=== PATIENT | female | born 1990 ===

== ENCOUNTER 2019-05-08 02:43 | Emergency (ER) | payer BC ==
[2019-05-08] MEDS ORDERED: Sodium Chloride 0.9% 1,000 ML IV ONE (02:52)
[2019-05-08] MEDS ORDERED: Ondansetron 4 MG/2 ML SDV IVPUSH ONE (02:52)
[2019-05-08] MEDS ORDERED: HYDROmorphone 1 MG/ML Syringe IVPUSH ONE ×2 (02:52→03:35)
[2019-05-08] MEDS ORDERED: Sodium Chloride 0.9% 2.5 ML Syringe FLUSH PRN (02:53)
[2019-05-08] MEDS ORDERED: Sodium Chloride 0.9% 10 ML Syringe FLUSH PRN (02:53)
--- NOTE | 2019-05-08 02:55 | EDM.PDOC ---
ED HPI GENERAL MEDICAL PROBLEM - General Chief Complaint: Lower Extremity Injury/Pain Stated Complaint: POSSIBLE BROKEN RIGHT LEG Time Seen by Provider: 05/08/19 02:47 - History of Present Illness INITIAL COMMENTS - FREE TEXT/NARRATIVE: HISTORY AND PHYSICAL: History of present illness: Patient is a 28-year-old female who presents with complaints of right lower leg pain after she fell off approximately 3 steps. The patient says she was in her usual state of good health with no systemic issues when she was walking up some steps and as she was getting to the top she fell off the side of the steps and landed onto her right leg. She did not hit her head pass out or black out and has no head neck or back pain and complains of pain and swelling only to the lower leg laterally. She says her ankle and foot are not painful and there is no numbness or tingling and her knee itself also does not hurt. She says that the right thigh and hip also do not hurt and all the other extremities are without injuries or pain. She has no abdominal pain no nausea or vomiting and no rib pain chest pain or shortness of breath. Patient does admit she had some alcohol this evening and she did not take any medications for pain prior to coming here. The patient is not taking any anticoagulation therapy The patient admits that she has a history of anxiety and bipolar and is currently not any medications Review of systems: As per history of present illness and below otherwise all systems reviewed and negative. Past medical history: As per history of present illness and as reviewed below otherwise noncontributory. Surgical history: As per history of present illness and as reviewed below otherwise noncontributory. Social history: No reported history of drug or alcohol abuse. Family history: As per history of present illness and as reviewed below otherwise noncontributory. Physical exam: General: Well-developed well-nourished female who is nontoxic and cooperative in the ED. Vital signs are noted by me HEENT: Atraumatic, normocephalic, pupils reactive, negative for conjunctival pallor or scleral icterus, mucous membranes moist, throat clear, neck supple, nontender, trachea midline. There is no evidence of any scalp defects or deformities and there is no midline step-offs tenderness defects of the cervical spine area there is no evidence of any facial injuries or soft tissue swelling and teeth and bite are intact. Lungs: Clear to auscultation, breath sounds equal bilaterally, chest nontender. Heart: S1S2, regular Rhythm and sightly tachycardic rate of my evaluation but no overt murmurs Abdomen: Soft nondistended nontender. Negative for masses or hepatosplenomegaly. NABS. There is no evidence of any abdominal wall soft tissue injury Pelvis: Stable nontender. There is no lateral hip tenderness bilaterally Genitourinary: Deferred. Rectal: Deferred. Extremities: Atraumatic and full range of motion of all extremities with the exception of the right lower leg, negative for cords or calf pain. Neurovascular unremarkable. At the right lower extremity laterally along the proximal fibular area there is soft tissue swelling and tenderness but the tibia appears to be intact and nontender. The patella is also intact and nontender and there is no knee swelling ecchymosis or joint effusion. The proximal femur and hip on the right side is nontender and there is no soft tissue swelling in the distal tib-fib ankle foot and toes are intact and nontender and there are no soft tissue swelling is appreciated Neuro: Awake, alert, oriented. Cranial nerves II through XII unremarkable. Cerebellum unremarkable. Motor and sensory unremarkable throughout. Exam nonfocal. Back: There are no midline step-offs tenderness defects of the thoracic or lumbar spine and no posterior rib tenderness Diagnostics: 1 view right femur, right tib-fib x-ray CBC CMP hCG INR alcohol level CT scan of the head and C-spine Therapeutics: IV, IV fluids, Zofran, Dilaudid and Toradol Long-leg post mold 0418: Case was discussed with Dr. Lujan and he is aware of my concerns with relation to how comminuted this fracture is and that there is a lipoma hemarthrosis. He accepts the patient for transfer and is aware that I am doing CT scan of the head and C-spine as well as we'll place her in a long-leg post mold. I will discuss this conversation with the patient when she returns from CT The patient has returned from CT and she says that she understands that going by ambulance would be more comfortable and safer but she cannot afford the ambulance and would like to go by private vehicle. We will give her a dose of pain medications prior to discharge as well as placing the long-leg splint. We will give her ice packs for the road and she is aware that she should not eat or drink anything in route as they may want to do surgery when she arrives. I have notified [facility] one call she will not be going by ambulance but by private vehicle. We will forward all imaging to the receiving hospital. I will check CT scan results prior to the patient's discharge Impression: Severely comminuted intra-articular proximal tibial fracture with hemarthrosis, status post fall; recent alcohol use/intoxication Definitive disposition and diagnosis as appropriate pending reevaluation and review of above. right leg Pain Score (Numeric/FACES): 10 - Related Data Allergies Allergy/AdvReac Type Severity Reaction Status Date / Time No Known Allergies Allergy Verified 05/08/19 02:51 Home Meds: Home Meds . [No Known Home Meds] 05/08/19 [History] Review of Systems - Review of Systems Review Of Systems: ROS reveals no pertinent complaints other than HPI. ED EXAM, GENERAL - Physical Exam Exam: See Below (See dictation) Course - Vital Signs Last Recorded V/S: Last Vital Signs Temp 36.2 C 05/08/19 03:33 Pulse 97 05/08/19 03:33 Resp 18 05/08/19 03:33 BP 120/70 05/08/19 03:33 Pulse Ox 97 05/08/19 03:33 - Orders/Labs/Meds Orders: Active Orders 24 hr Category Date Time Status Cervical Spine wo Cont [CT] Stat Exams 05/08/19 04:11 Taken Head wo Cont [CT] Stat Exams 05/08/19 04:11 Taken Sodium Chloride 0.9% [Saline Flush] Med 05/08/19 02:53 Active 10 ml FLUSH ASDIRECTED PRN Sodium Chloride 0.9% [Saline Flush] Med 05/08/19 02:53 Active 2.5 ml FLUSH ASDIRECTED PRN DME for Discharge [COMM] Stat Oth 05/08/19 04:22 Ordered Saline Lock Insert [OM.PC] Stat Oth 05/08/19 02:52 Ordered Medication Orders Sodium Chloride (Saline Flush) 10 ml FLUSH ASDIRECTED PRN PRN Reason: Keep Vein Open Last Admin: 05/08/19 03:47 Dose: 10 ml Sodium Chloride (Saline Flush) 2.5 ml FLUSH ASDIRECTED PRN PRN Reason: Keep Vein Open Last Admin: 05/08/19 03:47 Dose: 2.5 ml Labs: Laboratory Tests 05/08/19 05/08/19 05/08/19 Range/Units 02:59 02:59 02:59 WBC 10.37 (4.0-11.0) K/uL RBC 4.39 (4.30-5.90) M/uL Hgb 13.7 (12.0-16.0) g/dL Hct 40.4 (36.0-46.0) % MCV 92.0 (80.0-98.0) fL MCH 31.2 (27.0-32.0) pg MCHC 33.9 (31.0-37.0) g/dL RDW Std Deviation 41.2 (28.0-62.0) fl RDW Coeff of [place] 13 (11.0-15.0) % Plt Count 398 (150-400) K/uL MPV 9.90 (7.40-12.00) fL Neut % (Auto) 49.3 (48.0-80.0) % Lymph % (Auto) 36.3 (16.0-40.0) % Story % (Auto) 8.2 (0.0-15.0) % Eos % (Auto) 5.1 (0.0-7.0) % Baso % (Auto) 1.1 (0.0-1.5) % Neut # (Auto) 5.1 (1.4-5.7) K/uL Lymph # (Auto) 3.8 H (0.6-2.4) K/uL Story # (Auto) 0.9 H (0.0-0.8) K/uL Eos # (Auto) 0.5 (0.0-0.7) K/uL Baso # (Auto) 0.1 (0.0-0.1) K/uL INR 0.92 Sodium 144 (136-145) mmol/L Potassium 3.6 (3.5-5.1) mmol/L Chloride 106 (98-107) mmol/L Carbon Dioxide 23.0 (21.0-32.0) mmol/L BUN 9 (7.0-18.0) mg/dL Creatinine 0.9 (0.6-1.0) mg/dL Est Cr Clr Drug Dosing 87.12 mL/min Estimated GFR (MDRD) > 60.0 ml/min Glucose 123 H (74-106) mg/dL Calcium 9.0 (8.5-10.1) mg/dL Total Bilirubin 0.2 (0.2-1.0) mg/dL AST 23 (15-37) IU/L ALT 24 (14-63) IU/L Alkaline Phosphatase 78 (46-116) U/L Total Protein 7.6 (6.4-8.2) g/dL Albumin 4.2 (3.4-5.0) g/dL Globulin 3.4 (2.6-4.0) g/dL Albumin/Globulin Ratio 1.2 (0.9-1.6) HCG, Qual (NEG) Ethyl Alcohol 243 mg/dL 05/08/19 Range/Units 02:59 WBC (4.0-11.0) K/uL RBC (4.30-5.90) M/uL Hgb (12.0-16.0) g/dL Hct (36.0-46.0) % MCV (80.0-98.0) fL MCH (27.0-32.0) pg MCHC (31.0-37.0) g/dL RDW Std Deviation (28.0-62.0) fl RDW Coeff of [place] (11.0-15.0) % Plt Count (150-400) K/uL MPV (7.40-12.00) fL Neut % (Auto) (48.0-80.0) % Lymph % (Auto) (16.0-40.0) % Story % (Auto) (0.0-15.0) % Eos % (Auto) (0.0-7.0) % Baso % (Auto) (0.0-1.5) % Neut # (Auto) (1.4-5.7) K/uL Lymph # (Auto) (0.6-2.4) K/uL Story # (Auto) (0.0-0.8) K/uL Eos # (Auto) (0.0-0.7) K/uL Baso # (Auto) (0.0-0.1) K/uL INR Sodium (136-145) mmol/L Potassium (3.5-5.1) mmol/L Chloride (98-107) mmol/L Carbon Dioxide (21.0-32.0) mmol/L BUN (7.0-18.0) mg/dL Creatinine (0.6-1.0) mg/dL Est Cr Clr Drug Dosing mL/min Estimated GFR (MDRD) ml/min Glucose (74-106) mg/dL Calcium (8.5-10.1) mg/dL Total Bilirubin (0.2-1.0) mg/dL AST (15-37) IU/L ALT (14-63) IU/L Alkaline Phosphatase (46-116) U/L Total Protein (6.4-8.2) g/dL Albumin (3.4-5.0) g/dL Globulin (2.6-4.0) g/dL Albumin/Globulin Ratio (0.9-1.6) HCG, Qual NEGATIVE (NEG) Ethyl Alcohol mg/dL Meds: Medications Generic Name Dose Route Start Last Admin Trade Name Freq PRN Reason Stop Dose Admin Sodium Chloride 10 ml 05/08/19 02:53 05/08/19 03:47 Saline Flush FLUSH 10 ml ASDIRECTED PRN Administration Keep Vein Open Sodium Chloride 2.5 ml 05/08/19 02:53 05/08/19 03:47 Saline Flush FLUSH 2.5 ml ASDIRECTED PRN Administration Keep Vein Open Discontinued Medications Generic Name Dose Route Start Last Admin Trade Name Frearturo PRN Reason Stop Dose Admin Hydromorphone HCl 1 mg 05/08/19 02:52 05/08/19 02:57 Dilaudid IVPUSH 05/08/19 02:53 1 mg ONETIME ONE Administration Hydromorphone HCl 1 mg 05/08/19 03:35 05/08/19 03:42 Dilaudid IVPUSH 05/08/19 03:36 1 mg ONETIME ONE Administration Sodium Chloride 1,000 mls @ 999 mls/hr 05/08/19 02:52 05/08/19 02:57 Normal Saline IV 05/08/19 03:52 999 mls/hr STAT ONE Administration Ondansetron HCl 4 mg 05/08/19 02:52 05/08/19 02:57 Zofran IVPUSH 05/08/19 02:53 4 mg ONETIME ONE Administration Departure - Departure Time of Disposition: 04:50 Disposition: DC/Tfer to Acute Hospital 02 Condition: Good Clinical Impression: Fracture of proximal end of right tibia Qualifiers: Encounter type: initial encounter Fracture type: closed Fracture morphology: other fracture Qualified Code(s): S82.191A - Other fracture of upper end of right tibia, initial encounter for closed fracture - Discharge Information Referrals: PCP,None [Primary Care Provider] - Forms: ED Department Discharge - My Orders Last 24 Hours: My Active Orders 05/08/19 02:52 Saline Lock Insert [OM.PC] Stat 05/08/19 02:53 Sodium Chloride 0.9% [Saline Flush] 10 ml FLUSH ASDIRECTED PRN Sodium Chloride 0.9% [Saline Flush] 2.5 ml FLUSH ASDIRECTED PRN 05/08/19 04:11 Cervical Spine wo Cont [CT] Stat Head wo Cont [CT] Stat 05/08/19 04:22 DME for Discharge [COMM] Stat - Assessment/Plan Last 24 Hours: My Active Orders 05/08/19 02:52 Saline Lock Insert [OM.PC] Stat 05/08/19 02:53 Sodium Chloride 0.9% [Saline Flush] 10 ml FLUSH ASDIRECTED PRN Sodium Chloride 0.9% [Saline Flush] 2.5 ml FLUSH ASDIRECTED PRN 05/08/19 04:11 Cervical Spine wo Cont [CT] Stat Head wo Cont [CT] Stat 05/08/19 04:22 DME for Discharge [COMM] Stat
--- NOTE | 2019-05-08 03:38 | CR ---
INDICATION: Tibia pain following fall TECHNIQUE: Tibia-fibula radiograph 4 views right COMPARISON: None FINDINGS: Bone: There is a severely comminuted intra-articular fracture of the proximal tibia present. Evaluation of the mid tibia is limited by overlying bandage or compress material. Joint: The visualized knee and ankle joints are unremarkable. A small lipohemarthrosis present. Soft tissue: Unremarkable. No radiopaque foreign bodies are seen. IMPRESSIONS: 1. There is a severely comminuted intra-articular fracture of the proximal tibia present. 2. A small lipohemarthrosis present. Dictated by Carlton Oliveira MD @ 05/08/2019 3:38:05 AM Dictated by: Carlton Oliveira MD @ 05/08/2019 03:38:11 (Electronically Signed)
--- NOTE | 2019-05-08 03:49 | CR ---
INDICATION: Femur pain following fall. TECHNIQUE: Femur radiograph 1 views on 2 films right COMPARISON: None FINDINGS: Bones: Alignment is normal. No acute fractures or aggressive bone lesions identified. The distal femur is excluded on the frontal view. Joint spaces: Unremarkable. Soft tissues: Unremarkable. No radiopaque foreign bodies are seen. IMPRESSION: 1. No acute osseous injuries are noted. 2. Complete radiographic assessment will require at least an additional orthogonal view. Dictated by: Carlton Oliveira MD @ 05/08/2019 03:48:25 (Electronically Signed)
[2019-05-08 03:51] LABS: BLOOD UREA NITROGEN,BUN 9 mg/dL (7.0-18.0); CHLORIDE,CL 106 mmol/L (98-107); GLUCOSE RANDOM 123 mg/dL (74-106); POTASSIUM,K 3.6 mmol/L (3.5-5.1); SODIUM,NA 144 mmol/L (136-145)
[2019-05-08] MEDS ORDERED: HYDROmorphone 1 MG/ML Syringe IM ONE (04:33)
[2019-05-08] MEDS ORDERED: Ketorolac 30 MG/ML SDV IVPUSH ONE (04:33)
--- NOTE | 2019-05-08 04:33 | CT ---
INDICATION: Headache following fall TECHNIQUE: CT Head without i.v. contrast. COMPARISON: None FINDINGS: CSF space: The ventricles are normal for age. Brain: No evidence of mass, acute infarction or hemorrhage is seen. No mass-effect or midline shift is seen. The brain parenchyma is otherwise normal in appearance with preservation of the rodriguez-white matter junction. Calvarium: The visualized paranasal sinuses are well aerated. The mastoid air cells are clear. The visualized orbits are grossly unremarkable. The calvarium is unremarkable in appearance with no fractures identified. IMPRESSION: 1. No evidence of acute infarction, intracranial hemorrhage, or mass-effect seen. Please note that all CT scans at this facility use dose modulation, iterative reconstruction, and/or weight-based dosing when appropriate to reduce radiation dose to as low as reasonably achievable. Dictated by: Carlton Oliveira MD @ 05/08/2019 04:32:26 (Electronically Signed)
--- NOTE | 2019-05-08 04:38 | CT ---
INDICATION: Cervical spine pain following fall TECHNIQUE: CT cervical spine without i.v. contrast. Coronal and sagittal reformats were obtained. COMPARISON: None FINDINGS: Alignment: Unremarkable. Bone: No acute fractures or aggressive bone lesions are identified. Disc: The disc spaces are unremarkable in appearance. The facet joints are unremarkable. Soft tissue: The prevertebral soft tissues are unremarkable in appearance. The visualized lung apices and mediastinum are unremarkable. IMPRESSION: 1. No acute osseous injuries are identified. Please note that all CT scans at this facility use dose modulation, iterative reconstruction, and/or weight-based dosing when appropriate to reduce radiation dose to as low as reasonably achievable. Dictated by: Carlton Oliveira MD @ 05/08/2019 04:36:59 (Electronically Signed)
== END 2019-05-08 05:10 ==
LOC: MW.ED 02:43
DX: S82.191A Other fracture of upper end of right tibia, initial encounter for closed fracture (principal); F10.129 Alcohol abuse with intoxication, unspecified; Y90.8 Blood alcohol level of 240 mg/100 ml or more; W10.9XXA Fall (on) (from) unspecified stairs and steps, initial encounter
CPT/HCPCS: 36415; 70450; 72125; 73551; 73590; 80053; 84703; 85025; 85610; 96361; 96372; 96374; 96375; 96376; 99284; G0480; J1170; J1885; J2405; J7040

== ENCOUNTER 2019-05-17 18:21 | Emergency (ER) | payer SELFPAY ==
--- NOTE | 2019-05-17 18:54 | EDM.PDOC ---
ED HPI GENERAL MEDICAL PROBLEM - General Chief Complaint: Lower Extremity Injury/Pain Stated Complaint: HIP PAIN Time Seen by Provider: 05/17/19 18:30 Source of Information: Reports: Patient History Limitations: Reports: No Limitations - History of Present Illness INITIAL COMMENTS - FREE TEXT/NARRATIVE: HISTORY AND PHYSICAL: History of present illness: Patient is a 28-year-old female who presents to the emergency room with complaints of right hip pain. Patient was seen in our emergency room on 05/08/19 for injuries related to a fall. She was diagnosed with a severely comminuted intra-articular proximal tibial fracture and did ultimately have surgery at [facility]. Since that time she has had some right pain. Her orthopedic surgeon in [place], had ordered a hip x-ray which was negative. She did call his office today for advice on continued hip pain. He recommended she come to the emergency room for evaluation and CT study as she may have an occult fracture. Patient is ambulatory using crutches due to her lower extremity surgery. Review of systems: As per history of present illness and below otherwise all systems reviewed and negative. Past medical history: As per history of present illness and as reviewed below otherwise noncontributory. Surgical history: As per history of present illness and as reviewed below otherwise noncontributory. Social history: See social history for further information Family history: As per history of present illness and as reviewed below otherwise noncontributory. Physical exam: General: Well-developed and well-nourished 28-year-old female. Alert and oriented. Nontoxic appearing and in no acute distress. HEENT: Atraumatic, normocephalic, pupils equal and reactive bilaterally, negative for conjunctival pallor or scleral icterus, mucous membranes moist, nontender, trachea midline. No drooling or trismus noted. No meningeal signs. No hot potato voice noted. Lungs: Clear to auscultation, breath sounds equal bilaterally, chest nontender. Heart: S1S2, regular rate and rhythm without overt murmur Abdomen: Soft, nondistended, nontender. Negative for masses or hepatosplenomegaly. Negative for costovertebral tenderness. Pelvis: Stable nontender. Skin: Intact, warm, dry. No lesions or rashes noted. Extremities: Unable to weight bear due to recent surgery of right lower extremity; using crutches. Otherwise moves all other extremities per self without difficulty or deficits, strong pedal pulses bilaterally. No zbigniew tenderness with palpation of right hip. Neurovascular unremarkable. Neuro: Awake, alert, oriented. Cranial nerves II through XII unremarkable. Cerebellum unremarkable. Motor and sensory unremarkable throughout. Exam nonfocal. Notes: CT shows no acute osseous injuries or abnormalities are noted. This information was shared with the patient. She does have an appointment on 05/20/19 with the surgeon. I encouraged her to bring the CT results with her to that follow-up. She states she is out of her oxycodone today. I will give her hydrocodone to get her through to her appointment. Supportive care measures were reviewed and discussed. Voices understanding and is agreeable to plan of care. Denies any further questions or concerns at this time. Diagnostics: Hip/Pelvis CT Therapeutics: None Prescription: Cloverdale (#30) Impression: Right hip pain Plan: 1. Rest, ice, elevate the affected extremity. Please wear the lower extremity immobilizer/crutches as directed. 2. Tylenol and/or Ibuprofen as needed for pain management. 3. Follow up with the Orthopedic provider on Thursday as you have scheduled. Return to the ED as needed and as discussed. Definitive disposition and diagnosis as appropriate pending reevaluation and review of above. Right Leg Pain Score (Numeric/FACES): 7 - Related Data Allergies Allergy/AdvReac Type Severity Reaction Status Date / Time No Known Allergies Allergy Verified 05/17/19 18:32 Home Meds: Home Meds Acetaminophen/HYDROcodone [Cloverdale 325-5 MG] 1 dose PO Q4H #30 tablet 05/17/19 [Rx ] Enoxaparin [Lovenox] 05/17/19 [History] Past Medical History Cardiovascular History: Reports: Hypertension, Other (See Below) Other Cardiovascular History: "i was on blood pressure medication before because of my anxiety" Gastrointestinal History: Reports: None [employer] History: Reports: Psychiatric History: Reports: Anxiety, Bipolar - Infectious Disease History Infectious Disease History: Reports: Chicken Pox - Past Surgical History HEENT Surgical History: Reports: Adenoidectomy, Tonsillectomy Cardiovascular Surgical History: Reports: None GI Surgical History: Reports: Appendectomy Musculoskeletal Surgical History: Reports: Other (See Below) Other Musculoskeletal Surgeries/Procedures:: right leg surgery Social & Family History - Family History Family Medical History: Noncontributory - Tobacco Use Smoking Status *Q: Current Every Day Smoker Years of Tobacco use: 10 Packs/Tins Daily: 0.5 - Caffeine Use Caffeine Use: Reports: None - Recreational Drug Use Recreational Drug Use: No Review of Systems - Review of Systems Review Of Systems: ROS reveals no pertinent complaints other than HPI. ED EXAM, GENERAL - Physical Exam Exam: See Below (See dictation) Course - Vital Signs Last Recorded V/S: Last Vital Signs Temp 97.2 F 05/17/19 18:30 Pulse 125 H 05/17/19 18:30 Resp 18 05/17/19 18:30 BP 125/82 05/17/19 18:30 Pulse Ox 96 05/17/19 18:30 Departure - Departure Time of Disposition: 20:24 Disposition: Home, Self-Care 01 Clinical Impression: Right hip pain - Discharge Information Prescriptions: Acetaminophen/HYDROcodone [Cl[place]dale 325-5 MG] 1 dose PO Q4H #30 tablet Referrals: PCP,None [Primary Care Provider] - Forms: ED Department Discharge Additional Instructions: The following information is given to patients seen in the emergency department who are being discharged to home. This information is to outline your options for follow-up care. We provide all patients seen in our emergency department with a follow-up referral. The need for follow-up, as well as the timing and circumstances, are variable depending upon the specifics of your emergency department visit. If you don't have a primary care physician on staff, we will provide you with a referral. We always advise you to contact your personal physician following an emergency department visit to inform them of the circumstance of the visit and for follow-up with them and/or the need for any referrals to a consulting specialist. The emergency department will also refer you to a specialist when appropriate. This referral assures that you have the opportunity for follow-up care with a specialist. All of these measure are taken in an effort to provide you with optimal care, which includes your follow-up. Under all circumstances we always encourage you to contact your private physician who remains a resource for coordinating your care. When calling for follow-up care, please make the office aware that this follow-up is from your recent emergency room visit. If for any reason you are refused follow-up, please contact the [facility] Emergency Department at and asked to speak to the emergency department charge nurse. ALISA [facility] [address] [place] [address] [facility] [address] [place] [address] 1. Rest, ice, elevate the affected extremity. Please wear the lower extremity immobilizer/crutches as directed. 2. Tylenol and/or Ibuprofen as needed for pain management. Cloverdale for moderate to severe pain as directed. 3. Follow up with the Orthopedic provider on Thursday as you have scheduled. Return to the ED as needed and as discussed.
--- NOTE | 2019-05-17 20:15 | CT ---
INDICATION: Hip pain from fall 2 weeks ago TECHNIQUE: CT right hip without i.v. contrast. Coronal and sagittal reformats were obtained. COMPARISON: None FINDINGS: Bone: No acute fractures or aggressive bone lesions are identified. Joint: The right hip joint and SI joint are unremarkable. No significant joint effusion is seen. Soft tissue: Unremarkable. No radiopaque foreign bodies are seen. IMPRESSION: 1. No acute osseous injuries or abnormalities are noted. Please note that all CT scans at this facility use dose modulation, iterative reconstruction, and/or weight-based dosing when appropriate to reduce radiation dose to as low as reasonably achievable. Dictated by: Carlton Oliveira MD @ 05/17/2019 20:14:51 (Electronically Signed)
--- NOTE | 2019-05-17 20:18 | CT ---
INDICATION: Pelvic and right hip pain from fall 2 weeks ago TECHNIQUE: CT pelvis without i.v. contrast. Coronal and sagittal reformats were obtained. COMPARISON: None FINDINGS: Bone: No acute fractures or aggressive bone lesions are identified. Joint: The hip joint is unremarkable. No significant hip effusion is seen. The visualized sacroiliac joints are unremarkable in appearance. The pubic symphysis is normal in appearance. Soft tissue: Unremarkable. The visualized bowel gas pattern of the pelvis is unremarkable in appearance. No radiopaque foreign bodies are seen. IMPRESSION: 1. No acute osseous injuries or abnormalities are noted. Please note that all CT scans at this facility use dose modulation, iterative reconstruction, and/or weight-based dosing when appropriate to reduce radiation dose to as low as reasonably achievable. Dictated by: Carlton Oliveira MD @ 05/17/2019 20:16:43 (Electronically Signed)
== END 2019-05-17 20:35 | disposition home or self-care (01) ==
LOC: MW.ED 18:21
DX: M25.551 Pain in right hip (principal); I10 Essential (primary) hypertension; F17.210 Nicotine dependence, cigarettes, uncomplicated; Z79.01 Long term (current) use of anticoagulants
CPT/HCPCS: 72192; 72192-26; 73700-26-RT; 73700-RT; 99284-25